=== PATIENT | male | born 1980 | race Hispanic/Latino ===

== ENCOUNTER 2025-05-22 06:27 | Day surgery (SDC) | payer OTHER ==
[~2025-05-22] VITALS: Ht 190.5 cm; Wt 102.1 kg
[2025-05-22] VITALS (11 sets, daily range): BP systolic 112–123; BP diastolic 73–82; PULSE 43–50; RESP 12–17; TEMP 97.3–97.6
[~2025-05-22 06:27] MED LIST: ACET-66 PO; LAMO-23 PO; NAPR-1194 PO; PREG75CA76 PO
[2025-05-22] MEDS ORDERED: TRAZ-187 PO (06:54)
[2025-05-22] MEDS ORDERED: FLUT16H NS (06:54)
[2025-05-22] MEDS ORDERED: PREG75CA76 PO (06:54)
[2025-05-22] MEDS ORDERED: SERT-440 PO (06:54)
[2025-05-22] MEDS ORDERED: DEXL60CA3 PO (06:54)
[2025-05-22] MEDS ORDERED: FAMO40TA7 PO (06:54)
[2025-05-22] MEDS ORDERED: EREN70AU2 SQ (06:54)
[2025-05-22] MEDS ORDERED: ALBU18HF7 IH (06:54)
[2025-05-22] MEDS: 0.9%NACL 1000ML 1,000 ML IV ONE (07:20)
[2025-05-22] MEDS ORDERED: MIDAZOLAM HCL 1 MG/ML 2ML VIAL ONE (07:44)
[2025-05-22] MEDS ORDERED: LIDOCAINE HCL 400MG/20ML VIAL ONE (07:44)
[2025-05-22] MEDS ORDERED: BOTULINUM TOXIN TYPE A 100 UNITS/VIAL INJ ONE (08:00)
== END 2025-05-22 09:08 | disposition home or self-care (01) ==
LOC: DAH 06:27
PROVIDERS: ATTEND Surgery
DX: K22.0 Achalasia of cardia (principal); R13.10 Dysphagia, unspecified; K22.2 Esophageal obstruction; K22.89 Other specified disease of esophagus; K31.89 Other diseases of stomach and duodenum; F41.9 Anxiety disorder, unspecified; F32.A Depression, unspecified; K21.9 Gastro-esophageal reflux disease without esophagitis; J45.909 Unspecified asthma, uncomplicated; K31.84 Gastroparesis; K76.0 Fatty (change of) liver, not elsewhere classified; Z90.49 Acquired absence of other specified parts of digestive tract; Z98.890 Other specified postprocedural states; Z88.0 Allergy status to penicillin; Z79.899 Other long term (current) drug therapy
CPT/HCPCS: 43236; 43239; J0585; J3010; J3490; J7030; J2250; J2704 ×2; A4620; A4215

== ENCOUNTER 2025-07-24 06:56 | Day surgery (SDC) | payer OTHER ==
[~2025-07-24] VITALS: Ht 190.5 cm; Wt 102.1 kg
[2025-07-24] VITALS (11 sets, daily range): BP systolic 116–134; BP diastolic 74–91; PULSE 45–58; RESP 15–18; TEMP 97.3–98.1
[~2025-07-24 06:56] MED LIST changes: -ACET-66 PO; +ALBU18HF7 IH; +DEXL60CA3 PO; +DULO20CA18 PO; +EREN70AU2 SQ; +FAMO40TA7 PO; +FLUT16H NS; -LAMO-23 PO; -NAPR-1194 PO; +TRAZ-187 PO
[2025-07-24] MEDS: 0.9%NACL 1000ML 1,000 ML IV ONE (07:18)
[2025-07-24] MEDS ORDERED: ATROPINE 1MG SYG IVP ONE (07:40)
[2025-07-24] MEDS ORDERED: LIDOCAINE PF 100MG/5ML (2%) SYRINGE 5ML ONE (07:42)
[2025-07-24] MEDS ORDERED: BOTULINUM TOXIN TYPE A 100 UNITS/VIAL INJ ONE (08:00)
[2025-07-25] MEDS ORDERED: LATA2.5D7 OP (09:04)
[2025-07-25] MEDS ORDERED: [UNRECOGNIZED DRUG - CODE] PO (09:04)
[2025-07-25] MEDS ORDERED: CYCLO OU (09:04)
[2025-07-25] MEDS ORDERED: METO5TAB2 PO (09:04)
== END 2025-07-24 09:54 | disposition home or self-care (01) ==
LOC: DAH 06:56 → ENDO 06:56
PROVIDERS: ATTEND Surgery
DX: K22.0 Achalasia of cardia (principal); K22.2 Esophageal obstruction; K22.89 Other specified disease of esophagus; F41.9 Anxiety disorder, unspecified; F32.A Depression, unspecified; K21.9 Gastro-esophageal reflux disease without esophagitis; K31.84 Gastroparesis; K76.0 Fatty (change of) liver, not elsewhere classified; Z90.49 Acquired absence of other specified parts of digestive tract; Z88.0 Allergy status to penicillin; Z79.899 Other long term (current) drug therapy
CPT/HCPCS: 43236; J0585; J7030; J2003; J0461; J2704 ×3; A4620; A4215; A4657; J3490

== ENCOUNTER 2025-07-29 11:29 | Day surgery (SDC) | payer OTHER ==
[2025-07-25 08:21] LABS: IMMATURE GRANULOCYTE ABSOLUTE 0.02 K/uL (0-1); NUCLEATED RED BLOOD CELLS 0.0 % (0.0-0.19); PLATELET COUNT (AUTO) 227 K/uL (130-400); RED BLOOD CELL COUNT(AUTO) 4.76 MIL/uL (4.50-6.20); RED CELL DISTRIBUTION WIDTH 12.3 % (11.0-15.5); WHITE BLOOD COUNT (AUTO) 4.7 K/uL (4.8-10.8)
[2025-07-25 08:32] LABS: CREATININE 1.1 mg/dL (0.5-1.3); GLOMERULAR FILTR. RATE CALC 85.0 mL/min (>90); GLUCOSE,RANDOM 96.0 mg/dL (70-105); SODIUM SERUM 140.0 mmol/L (136-145); UREA NITROGEN, BLOOD 18.0 mg/dL (7-18)
[2025-07-25 08:45] VITALS: BP 137/78; PULSE 48; RESP 18; TEMP 97.5
[2025-07-25 08:48] LABS: INR 1.07 (0.85-1.15)
--- NOTE | 2025-07-25 10:15 | EKG ---
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
[~2025-07-29] VITALS: Ht 185.4 cm; Wt 106.1 kg
[2025-07-29] VITALS (7 sets, daily range): BP systolic 118–150; BP diastolic 78–91; PULSE 43–65; RESP 10–17; TEMP 97.5–98.1
[~2025-07-29 11:29] MED LIST changes: -ALBU18HF7 IH; +CYCLO OU; -EREN70AU2 SQ; +LATA2.5D7 OP; +METO5TAB2 PO; -PREG75CA76 PO; +[UNRECOGNIZED DRUG - CODE] PO
[2025-07-29] MEDS ORDERED: SODIUM BICARB 50MEQ 50ML VIAL 50 ML ONE (18:25)
[2025-07-29] MEDS ORDERED: LIDOCAINE HCL 1% MDV 50ML VIAL ONE (18:25)
[2025-07-29] MEDS ORDERED: IOHEXOL-350 50ML VIAL IV ONE (18:25)
[2025-07-29] MEDS ORDERED: VANCOMYCIN 1G/250ML KIT 500 ML IV ONE (18:42)
[2025-07-29] MEDS ORDERED: MIDAZOLAM HCL 1 MG/ML 2ML VIAL ONE ×3 (18:48→19:06)
[2025-07-29] MEDS ORDERED: TRAM50TA4 PO (20:01)
--- NOTE | 2025-07-29 20:15 | NUR ---
POST-REPAIRER ART OBJECTS SLING TO LEFT ARM. LEFT UPPER DRESSING TO CHEST. DRESSING SOFT TO TOUCH. DRESSING DRY AND INTACT. NO ACTIVE BLEEDING OR DRAINAGE NOTED. PATIENT ABLE TO WIGGLE FINGERS.
--- NOTE | 2025-07-29 20:30 | NUR ---
POST-BREAKER UP MACHINE OPERATOR SLING TO LEFT ARM. DRESSING TO LEFT UPPER CHEST. DRESSING SOFT TO TOUCH. NO ACTIVE BLEEDING OR DRAINAGE. NO REDNESS OR SWELLING NOTED. PATIENT ABLE TO WIGGLE FINGERS.
--- NOTE | 2025-07-29 20:45 | NUR ---
POST-SMALL ENGINE SPECIALIST SLING TO LEFT ARM. DRESSING TO LEFT UPPER CHEST. PATIENT ABLE TO WIGGLE FINGERS. NO ACTIVE BLEEDING OR DRAINAGE. NO REDNESS OR SWELLING NOTED. DRESSING TO LEFT UPPER CHEST SOFT AND INTACT.
--- NOTE | 2025-07-29 21:00 | NUR ---
POST-POTATO PICKER SLING TO LEFT ARM. DRESSING TO LEFT UPPER CHEST. PATIENT ABLE TO WIGGLE FINGERS. NO ACTIVE BLEEDING OR DRAINAGE NOTED. NO REDNESS OR SWELLING NOTED. DRESSING SOFT TO TOUCH, DRY AND INTACT.
--- NOTE | 2025-07-29 21:30 | NUR ---
POST-TEST EVALUATOR SLING TO LEFT ARM. LEFT UPPER DRESSING DRY AND INTACT. NO ACTIVE BLEEDING OR DRAINAGE NOTED. NO REDNESS OR SWELLING NOTED. DRESSING DRY AND INTACT.
--- NOTE | 2025-07-29 21:58 | NUR ---
POST-WAITER/WAITRESS TAKE OUT SLING TO LEFT ARM. PATIENT ABLE TO WIGGLE FINGERS. LEFT UPPER DRESSING DRY AND INTACT. NO ACTIVE BLEEDING OR DRAINAGE NOTED. DRESSING SOFT TO TOUCH. DRESSING DRY AND INTACT.
== END 2025-07-29 21:59 | disposition home or self-care (01) ==
LOC: DAH 11:29
PROVIDERS: ATTEND Internal Medicine Cardiovascular Disease
DX: I49.5 Sick sinus syndrome (principal); R00.1 Bradycardia, unspecified; G43.909 Migraine, unspecified, not intractable, without status migrainosus; Z79.01 Long term (current) use of anticoagulants; Z90.89 Acquired absence of other organs; Z82.49 Family history of ischemic heart disease and other diseases of the circulatory system; Z88.0 Allergy status to penicillin; Z79.899 Other long term (current) drug therapy; Z98.890 Other specified postprocedural states
CPT/HCPCS: 80048; 85025; 85610; 85730; 36415; 93005; 33208; 99156; 99157 ×4; 71045; A4223 ×3; C1785; C1898 ×2; J3010 ×2; J0665; J3490 ×2; J2250 ×3; J3373; Q9967; A4215; A6251; A4222; A4221; A4663; A4216; A6258; A4606